=== PATIENT | female | born 2000 | race Hispanic/Latino ===

== ENCOUNTER 2022-05-10 18:00 | Inpatient (IN) | payer SELFPAY ==
[2022-05-10] MEDS ORDERED: Lidocaine 1% (PF) 30 ML VIAL SC PRN (22:47)
[2022-05-10] MEDS ORDERED: Diphenoxylate HCl/Atropine Tablet PO PRN (22:47)
[2022-05-10] MEDS ORDERED: hydrALAZINE 20 MG/ML VIAL SLOW IVP PRN (22:47)
[2022-05-10] MEDS ORDERED: Promethazine HCl 25 MG/ML VIAL IM PRN (22:47)
[2022-05-10] MEDS ORDERED: Ibuprofen 800 MG TAB PO PRN (22:47)
[2022-05-10] MEDS ORDERED: Ondansetron PF 4 MG/2 ML Vial IVP PRN (22:47)
[2022-05-10] MEDS ORDERED: Carboprost 250 MCG/ML AMP IM PRN (22:47)
[2022-05-10] MEDS ORDERED: Methylergonovine 0.2 MG/ML VIAL IM PRN (22:47)
[2022-05-10] MEDS ORDERED: Misoprostol 200 MCG TAB PR PRN (22:47)
[2022-05-10] MEDS ORDERED: Penicillin G Potassium 5 MILL.UNITS in Sodium Chloride 0.9% 100 ML IVPB SCH (23:00)
[2022-05-10] MEDS ORDERED: NS w/ Oxytocin 30 units 500 ML IV SCH ×2 (23:00)
[2022-05-10 23:07] LABS: Hemoglobin 12.9 g/dL (12.0-15.5); Mean Corpuscular Hemoglobin 31.8 pg (27.0-33.0); Mean Corpuscular Volume 88.2 fl (81.6-98.3); Mean Platelet Volume 12.6 fl (7.4-10.4); Platelet Count 217 10x3/uL (150-450); RBC Distribution Width 13.2 % (11.5-14.5); Red Blood Cell (RBC) Count 4.06 10x6/uL (3.90-5.03); White Blood Cell (WBC) Count 6.9 10x3/uL (3.5-10.5)
[2022-05-10] MEDS: Misoprostol 100 MCG TAB VAG SCH (23:27)
[2022-05-10 23:57] LABS: HBSAg Index 0.14 S/CO (0-0.99); Hep B Surf Ag Non-Reactive S/CO (NonReactive)
[2022-05-10 23:58] LABS: Syphilis Antibody Nonreactive (Nonreactive); Syphilis Antibody Index 0.03 S/CO (<1.00 Non-Reactive)
[2022-05-11 01:16] LABS: ALT (SGPT) 53 U/L (8-55); AST (SGOT) 27 U/L (5-34); Albumin 3.1 g/dL (3.5-5.0); Alkaline Phosphatase 330 U/L (40-110); Anion Gap 16 mmol/L (10-20); BUN (Urea Nitrogen) 6 mg/dL (7.0-18.7); Bilirubin, Total 0.7 mg/dL (0.2-1.2); Calc. Creatinine Clearance 0 mL/min (70-130); Carbon Dioxide 17 mmol/L (22-29); Chloride 106 mmol/L (98-107); Estimated GFR 133; Globulin 2.7 g/dL (2.4-3.5); Glucose 164 mg/dL (70-105); Protein, Total 5.8 g/dL (6.0-8.3); Sodium 135 mmol/L (136-145)
[2022-05-11 01:45] LABS: SARS-CoV-2 NAA Rapid Test Not Detected (NotDetected)
[2022-05-11] MEDS: Penicillin G 2.5 MILL.units 2.5 MILL.UNITS in Premix Bag 1 BAG IVPB SCH ×5 (03:37→20:31)
[2022-05-11] MEDS ORDERED: Butorphanol Tartrate 1 MG/ML VIAL ONE (04:54)
[2022-05-11] MEDS ORDERED: Butorphanol Tartrate 1 MG/ML VIAL SLOW IVP PRN (05:20)
[2022-05-11] MEDS: Misoprostol 100 MCG TAB VAG SCH (06:54)
[2022-05-11] MEDS ORDERED: Fentanyl 2 mcg/Bup 0.1% Cadd 100 ML ONE ×2 (07:53→16:51)
[2022-05-11] MEDS ORDERED: Ondansetron PF 4 MG/2 ML Vial IVP PRN (09:18)
[2022-05-11] MEDS ORDERED: ePHEDrine Sulfate 50 MG/10 ML VIAL SLOW IVP PRN (09:18)
[2022-05-11] MEDS ORDERED: Lactated Ringer's 500 ML IV PRN (09:18)
[2022-05-11] MEDS ORDERED: diphenhydrAMINE 50 MG/ML VIAL IVP PRN (09:18)
[2022-05-11] MEDS ORDERED: Moisturizing Cream (Eucerin) 113 GM JAR TOP PRN (09:18)
[2022-05-11] MEDS ORDERED: Acetaminophen 325 MG TAB PO PRN (09:18)
[2022-05-11] MEDS ORDERED: Naloxone HCl 0.4 mg/ml Vial IVP PRN ×2 (09:18)
[2022-05-11] MEDS ORDERED: Promethazine HCl 25 MG/ML VIAL IM PRN (09:18)
[2022-05-11] MEDS ORDERED: Communication Order-Pharmacy FS SCH (09:30)
[2022-05-11] MEDS ORDERED: Fentanyl 2 mcg/Bupivacaine 0.1% Cassette 100 ML EPIDURAL SCH (09:30)
[2022-05-11] MEDS ORDERED: Fentanyl 100 MCG/2 ML VIAL ONE (10:50)
[2022-05-11 12:46] VITALS: BMI 30.7
[2022-05-11] MEDS ORDERED: diphenhydrAMINE 50 MG/ML VIAL IVP SCH (22:05)
[2022-05-11] MEDS ORDERED: Famotidine/PF 20 mg/2ml Vial ONE (22:42)
[2022-05-12] MEDS: Penicillin G 2.5 MILL.units 2.5 MILL.UNITS in Premix Bag 1 BAG IVPB SCH (00:10)
[2022-05-12] MEDS ORDERED: CEFAZOLIN 2 GM VIAL ONE (00:18)
[2022-05-12] MEDS ORDERED: Azithromycin 500 MG VIAL ONE (00:18)
[2022-05-12] MEDS ORDERED: Dexamethasone 4 mg/ml Vial ONE (00:20)
[2022-05-12] MEDS ORDERED: Morphine PF 10 MG/10 ML VIAL ONE (00:20)
[2022-05-12] MEDS ORDERED: Ondansetron PF 4 MG/2 ML Vial ONE (00:20)
[2022-05-12] MEDS ORDERED: Lidocaine 2% MPF 10 ML AMP (For Epidural Use) ONE (00:21)
[2022-05-12] MEDS ORDERED: PHENYLEPHRINE-NS 100 MCG/ML 10 ML SYRINGE ONE (00:21)
[2022-05-12] MEDS ORDERED: Oxytocin 10 UNITS/ML VIAL ONE (00:21)
[2022-05-12] MEDS ORDERED: Famotidine/PF 20 mg/2ml Vial SLOW IVP PRN (00:23)
[2022-05-12] MEDS ORDERED: Bicitra 30 ML UDCUP PO PRN (00:23)
[2022-05-12] MEDS ORDERED: CEFAZOLIN 2 GM in Sodium Chloride 0.9% 100 ML IVPB SCH (00:30)
[2022-05-12] MEDS ORDERED: Labetalol HCl 100 MG/20 ML VIAL ONE (00:55)
[2022-05-12] MEDS ORDERED: Esmolol 100 MG/10 ML VIAL ONE (00:56)
[2022-05-12] MEDS ORDERED: Naloxone HCl 0.4 mg/ml Vial IV PRN (01:04)
[2022-05-12] MEDS ORDERED: Ketorolac Tromethamine 30 MG/ML VIAL IVP PRN (01:04)
[2022-05-12] MEDS ORDERED: Ondansetron HCl/PF 4 MG/2 ML Vial IVP PRN (01:04)
[2022-05-12] MEDS ORDERED: Fentanyl 100 MCG/2 ML VIAL SLOW IVP PRN (01:04)
[2022-05-12] MEDS ORDERED: L&D-Morphine 4 MG/ML VIAL SLOW IVP PRN (01:04)
[2022-05-12] MEDS ORDERED: Promethazine HCl 25 MG/ML VIAL IM PRN (01:04)
[2022-05-12] MEDS ORDERED: Moisturizing Cream (Eucerin) 113 GM JAR TOP PRN (01:04)
[2022-05-12] MEDS ORDERED: Promethazine HCl 25 MG SUPP PR PRN (01:04)
[2022-05-12] MEDS ORDERED: Naloxone HCl 0.4 mg/ml Vial IVP PRN ×2 (01:04)
[2022-05-12] MEDS ORDERED: diphenhydrAMINE 50 MG/ML VIAL IVP PRN (01:04)
[2022-05-12] MEDS ORDERED: Meperidine HCl/PF 25 MG/ML VIAL SLOW IVP PRN (01:04)
[2022-05-12] MEDS ORDERED: Ondansetron PF 4 MG/2 ML Vial IVP PRN ×2 (01:04→02:55)
[2022-05-12] MEDS ORDERED: Communication Order-Pharmacy FS SCH (01:15)
[2022-05-12] MEDS ORDERED: Ketorolac Tromethamine 30 MG/ML VIAL IVP SCH (01:15)
[2022-05-12] MEDS ORDERED: Lanolin Ointment 7 GM TUBE TOP PRN (02:55)
[2022-05-12] MEDS ORDERED: Boostrix 0.5 ML (Tdap) VIAL (>/=7 yrs of age) IM ONE (02:55)
[2022-05-12] MEDS ORDERED: diphenhydrAMINE 25 MG CAP PO PRN (02:55)
[2022-05-12] MEDS ORDERED: Simethicone Chewable 80 MG TAB PO PRN (02:55)
[2022-05-12] MEDS ORDERED: Bisacodyl 10 MG SUPP PR PRN (02:55)
[2022-05-12] MEDS ORDERED: Misoprostol 200 MCG TAB PR PRN (02:55)
[2022-05-12] MEDS ORDERED: hydrALAZINE 20 MG/ML VIAL SLOW IVP PRN (02:55)
[2022-05-12] MEDS ORDERED: NS w/ Oxytocin 30 units 500 ML IV SCH (03:15)
[2022-05-12] MEDS: Ferrous Sulfate 325 MG TAB PO SCH ×2 (07:39→21:01)
[2022-05-12] MEDS ORDERED: Famotidine/PF 20 mg/2ml Vial SLOW IVP SCH (09:00)
[2022-05-12] MEDS: Docusate 100 MG CAP PO SCH ×2 (12:06→21:54)
[2022-05-12] MEDS: Prenatal Vitamin 1 TAB PO SCH (12:06)
[2022-05-12] MEDS: HYDROcodone/Acetaminophen 5/325 mg Tablet PO PRN (17:14)
[2022-05-12] MEDS: Ibuprofen 800 MG TAB PO SCH (21:55)
[2022-05-13 04:51] LABS: Mean Corpuscular HGB CONC 34.8 g/dL (32.0-36.0); Mean Corpuscular Hemoglobin 31.4 pg (27.0-33.0); Mean Corpuscular Volume 90.3 fl (81.6-98.3); Mean Platelet Volume 12.1 fl (7.4-10.4); Platelet Count 179 10x3/uL (150-450); RBC Distribution Width 13.6 % (11.5-14.5); Red Blood Cell (RBC) Count 3.82 10x6/uL (3.90-5.03); White Blood Cell (WBC) Count 12.6 10x3/uL (3.5-10.5)
[2022-05-13] MEDS: Ibuprofen 800 MG TAB PO SCH ×3 (05:16→21:10)
[2022-05-13] MEDS ORDERED: Ibuprofen 800 MG TAB PO SCH (06:00)
[2022-05-13] MEDS: Docusate 100 MG CAP PO SCH ×2 (09:16→21:10)
[2022-05-13] MEDS: Polyethylene Glycol 3350 17 GM Packet PO SCH ×2 (09:16→18:23)
[2022-05-13] MEDS: Prenatal Vitamin 1 TAB PO SCH (09:16)
[2022-05-13] MEDS: Ferrous Sulfate 325 MG TAB PO SCH ×2 (09:22→21:09)
[2022-05-13] MEDS: HYDROcodone/Acetaminophen 5/325 mg Tablet PO PRN ×2 (16:35→19:55)
[2022-05-14] MEDS: Ibuprofen 800 MG TAB PO SCH (05:09)
[2022-05-14] MEDS: Ferrous Sulfate 325 MG TAB PO SCH (07:35)
[2022-05-14 08:27] VITALS: BP 119/68; TEMP 98.9
[2022-05-14] MEDS: Polyethylene Glycol 3350 17 GM Packet PO SCH (08:44)
[2022-05-14] MEDS: Prenatal Vitamin 1 TAB PO SCH (08:44)
[2022-05-14] MEDS: HYDROcodone/Acetaminophen 5/325 mg Tablet PO PRN (08:45)
[2022-05-14] MEDS: Docusate 100 MG CAP PO SCH (08:45)
== END 2022-05-14 11:30 | disposition home or self-care (01) | DRG 786 ==
LOC: CSHLD 21:03 → CSHPP 05-12 03:06
PROVIDERS: ADMIT Family Medicine; ATTEND Family Medicine
PROC: 3E0P7VZ Introduction of Hormone into Female Reproductive, Via Natural or Artificial Opening (ICD-10-PCS; 2022-05-10)
PROC: 3E033VJ Introduction of Other Hormone into Peripheral Vein, Percutaneous Approach (ICD-10-PCS; 2022-05-11)
PROC: 10D00Z1 Extraction of Products of Conception, Low, Open Approach (ICD-10-PCS; principal; 2022-05-12)
DX: O26.62 Liver and biliary tract disorders in childbirth (principal); K83.1 Obstruction of bile duct; O72.2 Delayed and secondary postpartum hemorrhage; Z3A.37 37 weeks gestation of pregnancy; Z37.0 Single live birth; Z20.822 Contact with and (suspected) exposure to COVID-19; O24.420 Gestational diabetes mellitus in childbirth, diet controlled; Z86.16 Personal history of COVID-19; O62.1 Secondary uterine inertia; O33.9 Maternal care for disproportion, unspecified; Z79.899 Other long term (current) drug therapy; Z82.3 Family history of stroke; O32.8XX0 Maternal care for other malpresentation of fetus, not applicable or unspecified
CPT/HCPCS: 36416; 51702; 80053; 85027; 86780; 86850; 86900; 86901; 87340; J0595; J1100; J1200; J1885; J2274; J2405; J2540; J2590; J3010; J3490; S0028; U0002